=== PATIENT | male | born 1985 | race Two or more races ===

== ENCOUNTER 2019-01-09 14:03 | Emergency (ER) | payer OTHER ==
[~2019-01-09] VITALS: Ht 190.5 cm; Wt 88.5 kg
[2019-01-09 14:07] VITALS: BP 103/65
[2019-01-09] MEDS ORDERED: METHADONE HCL10 MG ORAL (14:13)
--- NOTE | 2019-01-09 14:50 | NUR ---
ED Nurse Note: Pressure irrigation done. Noted a verys mall skin laceration on left foot with small amount of blood coming out after irrigation.
--- NOTE | 2019-01-09 15:01 | Emergency Room Report ---
History of Present Illness General Chief Complaint: Laceration Source: Patient Present Illness HPI 33-year-old male presents to the emergency department complaining of 4 out of 10 severity pain, tenderness, bleeding from site of a puncture/laceration that patient sustained earlier today after dropping a scalpel on his foot. Patient reports that he was cutting up medical marijuana plant with a scalpel when after sitting it down on the counter next to him he actually knocked it over and it fell to the ground and caught him on the top of the left foot. Patient denies taking blood thinning medications he reports moderate amount of bleeding initially which is well trolled with a pressure dressing which he applied. Patient states he is up-to-date with his tetanus vaccination he received within the last 2 years. Patient denies significant past medical history denies history of blood dyscrasias denies taking any daily medications. Denies paresthesias or loss of gross motor movements to the affected extremity. No other aggravating or relieving factors at this time. Allergies: Coded Allergies: No Known Allergies (Unverified , 01/09/19) Patient History Past Medical History: see triage record Past Surgical History: none Pertinent Family History: none Immunizations: UTD Reviewed Nursing Documentation: PMH: Agreed; PSxH: Agreed Nursing Documentation-PMH Past Medical History: No History, Except For Review of Systems All Other Systems: negative except mentioned in HPI Physical Exam Vital Signs Date Time Temp Pulse Resp B/P (MAP) Pulse Ox O2 Delivery O2 Flow Rate FiO2 01/09/19 14:07 98.1 16 103/65 97 Room Air 01/09/19 14:07 80 Sp02 EP Interpretation: reviewed, normal General Appearance: no apparent distress, alert, GCS 15, non-toxic Head: normocephalic, atraumatic Eyes: bilateral eye normal inspection, bilateral eye PERRL ENT: hearing grossly normal, normal voice Neck: full range of motion Respiratory: lungs clear, normal breath sounds, speaking full sentences Cardiovascular #1: regular rate, rhythm Cardiovascular #2: 2+ dorsalis pedis (R), 2+ dorsalis pedis (L) Gastrointestinal: non tender, soft Musculoskeletal: back normal, gait/station normal, normal range of motion, non- tender Neurologic: alert, oriented x3, responsive, motor strength/tone normal, sensory intact, normal gait, speech normal, grossly normal Psychiatric: judgement/insight normal Skin: laceration - small 0.5cm laceration to the dorsum of the left foot, no visible fb, no tendon involvement. Procedures Laceration/Wound Repair Laceration/Wound Repair : Consent: Verbal Wound Location: lower extremity - left foot Wound's Depth, Shape: superficial Wound Length (cm): 0 Wound Explored: clean Irrigated w/ Saline (ccs): 200 Wound Repaired With: Dermabond Layer Closure?: No Sterile Dressing Applied?: No Splint Applied?: No Sling Applied?: No Patient Tolerated: Well Complications: None Medical Decision Making PA Attestation Dr. Cline is my supervising physician whom pt. management has been discussed with. Diagnostic Impression: Primary Impression: Foot laceration Qualified Codes: S91.312A - Laceration without foreign body, left foot, initial encounter ER Course 33-year-old male presents to the emergency department complaining of 4 out of 10 severity pain, tenderness, bleeding from site of a puncture/laceration that patient sustained earlier today after dropping a scalpel on his foot. Patient reports that he was cutting up medical marijuana plant with a scalpel when after sitting it down on the counter next to him he actually knocked it over and it fell to the ground and caught him on the top of the left foot. Patient denies taking blood thinning medications he reports moderate amount of bleeding initially which is well trolled with a pressure dressing which he applied. Patient states he is up-to-date with his tetanus vaccination he received within the last 2 years. Patient denies significant past medical history denies history of blood dyscrasias denies taking any daily medications. Denies paresthesias or loss of gross motor movements to the affected extremity. No other aggravating or relieving factors at this time. Ddx considered but are not limited to laceration, tendon injury, cellulitis, amputation Vital signs: are WNL, pt. is afebrile H&PE are most consistent with: 0.5c dorsal left foot laceration. ORDERS: none required at this time, the diagnosis is clinical ED INTERVENTIONS: -Tetanus vaccine was administered as pt. vaccination status was unknown. - The wound was copiously irrigated with normal saline, and explored for foreign body for which no FB was found. - The wound was approximated and closed with derma-paez application Discussed with patient: That we make every effort to approximate the laceration as best as we can so that scarring will be as cosmetically pleasing as possible with our limited cosmetic skill set in the Emergency dept. Regardless of our best efforts there will be scarring after laceration repair. The extent of scarring is unknown at this time. DISCHARGE: At this time pt. is stable for d/c to home. Will provide printed patient care instructions, and any necessary prescriptions. Care plan and follow up instructions have been discussed with the patient prior to discharge. Last Vital Signs Date Time Temp Pulse Resp B/P (MAP) Pulse Ox O2 Delivery O2 Flow Rate FiO2 01/09/19 14:07 98.1 80 16 103/65 (78) 97 Room Air Disposition: HOME, SELF-CARE Condition: Stable Scripts Acetaminophen* (TYLENOL EXTRA STRENGTH*) 500 Mg Tablet 500 MG ORAL Q6H, #20 TAB 0 Refills Prov: Shobha King 01/09/19 Trimethoprim/Sulfamethoxazole 160/800* (BACTRIM DS TABLET*) 1 Each Tablet 1 TAB ORAL TWICE A DAY for 7 Days, #14 TAB Prov: Shobha King 01/09/19 Cephalexin* (KEFLEX*) 500 Mg Capsule 500 MG ORAL EVERY 12 HOURS for 7 Days, #14 CAP 0 Refills Prov: Shobha King 01/09/19 Patient Instructions: Nonsutured Laceration Care Additional Instructions: Take medications as directed. Follow up with a Primary Care Provider in 3-5 days, even if your symptoms have resolved. --Please review list of primary care clinics, if you do not already have a primary care provider Return sooner to ED if new symptoms occur, or current symptoms become worse. - Please note that this Emergency Department Report was dictated using [employer] agent technology software, occasionally this can lead to erroneous entry secondary to interpretation by the dictation equipment. Shobha iKng Jan 09, 2019 15:01
[2019-01-09] MEDS ORDERED: CEPHALEXIN500 MG ORAL (15:02)
[2019-01-09] MEDS ORDERED: BACTRIM DS TAB1 EAC1 ORAL (15:02)
[2019-01-09] MEDS ORDERED: TYLENOL EXTRA500 MG ORAL (15:02)
[2019-01-09 15:18] VITALS: BP 118/70
--- NOTE | 2019-01-09 15:18 | NUR ---
ER DISCHARGE NOTE: Pt was seen due to left foot laceration. Patient is cleared to be discharged per PA, pt is aox4, on room air, with stable vital signs. pt was given dc and prescription instructions, pt was able to verbalize understanding, pt id band removed. pt is able to ambulate with steady gait. pt took all belongings.
== END 2019-01-09 15:18 | disposition home or self-care (01) ==
LOC: EMR 14:58
DX: S91.312A Laceration without foreign body, left foot, initial encounter (principal); W26.8XXA Contact with other sharp object(s), not elsewhere classified, initial encounter; Y92.9 Unspecified place or not applicable
CPT/HCPCS: 12001; 99283; Z7502